=== PATIENT | male | born 1950 | race Caucasian/White ===

== ENCOUNTER → 2017-09-17 07:27 | Outpatient (CLI) | payer MEDICARE, OTHER, SELFPAY ==
[2017-09-17 08:48] LABS: Alanine Aminotransferase 41 IU/L (21-72); Albumin 4.3 g/dL (3.5-5.0); Albumin Globulin Ratio 1.8 (1.0-2.8); Alkaline Phosphatase 69 U/L (38-126); Aspartate Aminotransferase 35 IU/L (17-59); Bilirubin Total 0.5 mg/dL (0.2-1.3); Bilirubin Unconjugated 0.2 mg/dL (0.0-1.1); Cholesterol 146 mg/dL (140-199); Globulin 2.4 g/dL (1.7-4.1); HDL Cholesterol 62 mg/dL (40-60); HEMOLYSIS < 15 (0-50); LDL Cholesterol Calculated 69 mg/dL (<100); Total Protein 6.7 g/dL (6.3-8.2); Triglycerides 77 mg/dL (35-150)
== END ==
PROVIDERS: PCP Internal Medicine; Visit Provider Internal Medicine Cardiovascular Disease
DX: I10 Essential (primary) hypertension (principal); I70.90 Unspecified atherosclerosis
CPT/HCPCS: 36415; 80061; 80076

== ENCOUNTER → 2018-02-08 09:40 | Outpatient (CLI) | payer MEDICARE, OTHER, SELFPAY ==
--- NOTE | 2018-02-08 | DI.MRI.S_ITS ---
PROCEDURE: MR LUMBAR SPINE WO CON INDICATIONS: LUMBAR RADICULOPATHY AND RIGHT FOOT PAIN TECHNIQUE: Noncontrast sagittal T1 spin echo and T2 fast echo, sagittal STIR, axial T1 and T2 fast spin echo through the lumbar spine. In cases with scoliosis, additional coronal T2 fast spin echo may be performed. COMPARISON: None. FINDINGS: Image quality: Excellent. Alignment and Curvature: There is trace L2-L3, L3-L4 and L4-L5 retrolisthesis. Bone Marrow: Benign, intraosseous hemangiomas noted in the L2 and L3 vertebral bodies. Mild reactive endplate changes noted adjacent to the L5-S1 disc. No acute vertebral body compression fractures. Spinal Cord: Conus medullaris terminates at the L1 level. Visualized cord demonstrates normal signal and size. Paraspinous Soft Tissues: No paravertebral masses. L1-L2: Loss of disc signal and height. Moderate, diffuse disc bulge. No central stenosis. No neural foraminal narrowing. No neural impingement. L2-L3: Loss of disc signal and height. Mild, diffuse disc bulge. Mild narrowing of the central canal. No neural foraminal narrowing. No neural impingement. L3-L4: Loss of disc signal and height. Mild, diffuse disc bulge. Mild narrowing of the central canal. No neural foraminal narrowing. No neural impingement. L4-L5: Loss of disc signal and height. Mild, diffuse disc bulge. Mild bilateral facet hypertrophy. Mild narrowing of the central canal. Mild bilateral neural foraminal narrowing. No neural impingement. L5-S1: Loss of disc signal and height. Mild, diffuse disc bulge. Mild bilateral facet hypertrophy. No central stenosis. Mild bilateral neural foraminal narrowing. No neural impingement. Focal high intensity zone noted in the posterior annulus compatible with a fissure. IMPRESSION: 1. Multilevel degenerative disc disease. 2. Multilevel facet arthropathy. 3. Mild L2-L3 and L3-L4 central canal narrowing. 4. Mild bilateral L4-L5 and L5-S1 neural foraminal narrowing. 5. No neural impingement. 6. L5-S1 disc annulus fissure. Dictated by: Mary Burgos MD, PhD on 02/08/2018 at 21:59 Approved by: Mary Burgos MD, PhD on 02/08/2018 at 22:03
== END ==
PROVIDERS: Family Provider Family Medicine; PCP Family Medicine; Visit Provider Orthopaedic Surgery Foot and Ankle Surgery
DX: M51.16 Intervertebral disc disorders with radiculopathy, lumbar region (principal); M51.17 Intervertebral disc disorders with radiculopathy, lumbosacral region; M47.26 Other spondylosis with radiculopathy, lumbar region; M47.27 Other spondylosis with radiculopathy, lumbosacral region; M48.061 Spinal stenosis, lumbar region without neurogenic claudication; M48.07 Spinal stenosis, lumbosacral region; M79.671 Pain in right foot
CPT/HCPCS: 72148

== ENCOUNTER → 2019-01-06 15:02 | Outpatient (CLI) | payer MEDICARE, OTHER, SELFPAY ==
[2019-01-06 15:59] LABS: BUN Creatinine Ratio 18.5 (6-22); Blood Urea Nitrogen 24 mg/dL (9-20); Carbon Dioxide 27 mmol/L (22-32); Chloride 107 mmol/L (98-107); Estimated Glomerular Filt Rate 54.7 mL/min (>60); Glucose 91 mg/dL (80-110); HEMOLYSIS < 15 (0-50); Potassium 4.2 mmol/L (3.4-5.1); Sodium 142 mmol/L (137-145)
[2019-01-06 16:16] LABS: Vitamin D 25 Hydroxy (D3) 27.8 ng/mL (30.0-100.0)
[2019-01-06 16:30] LABS: Prostate Specific Antigen Scrn 4.43 ng/mL (0.1-4.0)
== END ==
PROVIDERS: PCP Student in an Organized Health Care Education/Training Program; Visit Provider Student in an Organized Health Care Education/Training Program
DX: Z12.5 Encounter for screening for malignant neoplasm of prostate (principal); I10 Essential (primary) hypertension; E55.9 Vitamin D deficiency, unspecified
CPT/HCPCS: 36415; 80048; 82306; G0103

== ENCOUNTER → 2019-02-10 10:06 | Outpatient (CLI) | payer MEDICARE, OTHER, SELFPAY ==
--- NOTE | 2019-02-10 10:07 | DI.RAD.S_ITS ---
PROCEDURE: FL BARIUM SWALLOW W SPEECH INDICATIONS: Dysphagia TECHNIQUE: Examination was conducted in conjunction with speech pathology per standard protocol. In the lateral projection, filming was performed of the patient swallowing. AP projection filming may also be performed with patient swallowing. COMPARISON: None. FINDINGS: Function: The oral preparatory phase appears normal, with proper containment. The subsequent oral propulsive phase, pharyngeal phase, and esophageal phase of swallowing also appear normal with all proffered substances. There is a single episode of mild laryngotracheal penetration without aspiration. No pathologic vallecular pooling. Morphology: No cricopharyngeal bar is identified. No cervical esophageal webs. No Zenker's diverticulum. No strictures. IMPRESSION: Single episode of mild laryngotracheal penetration without aspiration. Otherwise, unremarkable modified barium swallow examination. Please see separate report by speech pathology for further details. Dictated by: John Tovar M.D. on 02/10/2019 at 17:55 Approved by: John Tovar M.D. on 02/10/2019 at 17:56
--- NOTE | 2019-02-10 14:41 | ST.SWALLOW ---
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 Ramirez Setting Setting Outpatient Care Patient Information Identification Type Name,ID Wristband Patient History Scottie May was seen for a Modified Barium Swallow Study secondary to concerns of frequent throat clearing. He reported that currently he does not cough or choke whille eating. He denies a medical history of injury or surgery in the neck area, denies CVA/ TIA. He did report that about 2 years ago he had trouble swallowing in that it felt as though food was getting stuck an needed fluids in order to pass to the stomach. He stated he had not seen a doctor for this problem. There was no video available for further slow speed assessment due to a technical difficulty with video uploading. Subjective Observations Pt was seated in the fluoroscopy chair.Directions and instructions for the procedure were explained to the pt. He indicated he understood and was agreeable to proceed. Patient Positioning Position View Lateral Imaging Lateral View Textures Administered Trials Presented Thin Liquid via Spoon,Thin Liquid via Cup,[place] Liquid via Spoon,[place] Liquid via Cup,Regular Textures Oral Phase Source: MBSIMP (TM) (C) Bolus Specific Scoring Grid Lip Closure WFL Tongue Control During Bolus Hold WFL Bolus Prep/Mastication WFL Bolus Transport/Lingual Motion WFL A/P Lingual Propulsion Delay No Nasal Regurgitation No Additional Oral Phase Observations OM examination indicated structures and function to be WFL. Adequate mastication observed with rotary chew. No oral residue observed. Pharyngeal Phase Source: MBSIMP (TM) (C) Bolus Specific Scoring Grid Delayed Initiation of Pharyngeal Swallow No Soft Palate Elevation WFL Tongue Base Strength/Range of Motion Mild Impairment Residue Along the Tongue Base Yes Clearance of Residue Along Tongue Base WFL Laryngeal Elevation Minimal Impairment Anterior Hyoid Movement Mild Impairment Epiglottic Range of Motion Mild Impairment Vallecular Residue Yes Clearance of Vallecular Residue Mild Impairment Laryngeal Vestibular Closure Mild Impairment Upper Esophageal Sphincter Opening WFL Residue in the Pyriform Sinuses Yes Clearance of Residue in the Pyriform Minimal Impairment Sinuses Esophageal Clearance Upright Position WFL Pharyngoesophageal Backflow Observed No A/P View Clinical Impressions Dysphagia Type Mild pharyngeal phase dysphagia Findings No premature spillage of the bolus was observed. The swallow response appeared to be WFL. Tongue base was observed to be weak with reduced forward excursion of the hyoid bone. Hyolaryngeal elevation appeared to be WFL. Reduced movement of the hyoid bone negatively effects epiglottic movement, reduces the closure of the laryngeal vestibule and results in pooled residue in the valeculla. This pooling was observed across all trials within the valeculla. Flash penetration into the airway was observed several times with thin liquids, indicating incomplete epiglottic seal/ airway protection. There was no aspiration observed. The pt did not cough in response to the penetration. Cuing to clear his throat and swallow was effective in clearing pharyngeal residue except that in the valeculla. Rehabilitation Potential Good Patient Appropriate for Therapy Yes Recommendations Treatment Plan Therapy Recommendations Outpatient Speech Therapy,Base of Tongue Exercises, Compensatory Strategy Education Recommended Referrals Primary Care Physician
== END ==
PROVIDERS: PCP Student in an Organized Health Care Education/Training Program; Visit Provider Student in an Organized Health Care Education/Training Program
DX: R13.10 Dysphagia, unspecified (principal)
CPT/HCPCS: 74230; 92611

== ENCOUNTER 2019-02-11 11:00 | Day surgery (SDC) | payer MEDICARE, OTHER, SELFPAY ==
[2019-02-10 10:53] VITALS: BMI 26.4
[2019-02-11] VITALS (7 sets, daily range): BP systolic 109–148; BP diastolic 58–82; PULSE 64–76; RESP 13–16; TEMP 36.3–36.8; O2SAT 95–99; BMI 25.8
[2019-02-11] MEDS: LACTATED RINGERS 1,000 ML 100 ML IV (11:41)
--- NOTE | 2019-02-11 11:54 | SUR.PREOP ---
Questions surgeon (Spenser) the 3 gram Ancef IV with pt's current weight @ 84 kg. Surgeon gave verbal order for 2 gram Ancef IV weight based.
[2019-02-11 12:02] LABS: BUN Creatinine Ratio 14.2 (6-22); Blood Urea Nitrogen 17 mg/dL (9-20); Carbon Dioxide 25 mmol/L (22-32); Chloride 108 mmol/L (98-107); Estimated Glomerular Filt Rate > 60.0 mL/min (>60); Glucose 98 mg/dL (80-110); HEMOLYSIS < 15 (0-50); Sodium 142 mmol/L (137-145)
--- NOTE | 2019-02-11 12:23 | PM.PREOP ---
Pre-operative Note Interval Note History & Physical reviewed/Exam performed by Physician: Yes Changes to H&P: No
[2019-02-11] MEDS: CEFAZOLIN 2 GM/100 ML FROZ.PIGGY IV (12:35)
--- NOTE | 2019-02-11 12:51 | SUR.OPER ---
Supine on padded OR bed, head on pillow, arms secured on padded arm boards at <90 degrees abduction, legs uncrossed, safety belt at thigh, tape over blanket over lower legs.
[2019-02-11] MEDS: BUPIVACAINE 0.25% W/ EPI (PF) 10 ML VIAL 20 ML INJ (12:58)
[2019-02-11] MEDS: BUPIVACAINE LIPOSOME 266 MG/20 ML VIAL INJ (13:14)
--- NOTE | 2019-02-11 13:34 | PM.OP.1 ---
Operative Date/Time/Diagnoses Date of procedure: 02/11/19 Time of procedure: 13:35 Pre-op diagnosis: umbilical hernia Post-op diagnosis: same Procedure & Clinicians Procedure: Umbilical hernia repair with mesh Same procedure as scheduled: Yes Indications: This is a 68-year-old man with a history of an umbilical hernia which causes him pain and discomfort. Surgeon: Milly Dueñas Click Yes if Unassisted: Yes Anesthesia Type: General (Tyrell a) Operative Notes Findings: 1.5cm umbilical hernia defect with hernia sac scarred into the posterior umbilical skin Specimen(s): none sent Prosthetic devices, grafts, tissues, transplants, or devices: 4 cm x 4 cm Macro porous mesh Estimated Blood Loss (mL): 0 Blood products transfused: none Procedure in detail: The patient was brought into the operating room and placed supine on the OR table. Sequential compression devices were placed on both legs and turned on. Appropriate perioperative antibiotics were given prior to the start of surgery. General anesthesia was induced and an LMA was placed by the anesthesiologist. The abdomen was prepped and draped in sterile fashion. Surgical time-out was conducted. Local anesthetic was injected under the skin just superior to the umbilicus and a fold of the umbilical skin. A 3 cm transverse curvilinear incision was made at this location. Dissection was carried down to the fascia of the abdominal wall using sharp and blunt dissection. The umbilical hernia sac was identified was found to be scarred into the dermis of the umbilical skin. The hernia sac was dissected free and the skin was spared. The sac was then dissected free from the surrounding fascia and reduced into the abdomen. The hernia defect was found to be about 1.5 cm, not large enough to fit a preperitoneal mesh without enlarging the umbilical ring. The decision was then made to close the hernia defect primarily with 0 Prolene suture. This was done with 2 0 Prolene [id number] sutures. I then elected to reinforce anteriorly with macro porous mesh. 20 cc of Exparel was injected into the abdominal wall circumferentially covering all regions affected by our dissection to provide prolonged nonnarcotic analgesia. A 4 cm x 4 cm piece of mesh was brought into the field and shaped to fit over the hernia defect anteriorly with good overlap. The mesh was sutured down with 2 0 PDS suture. The umbilical skin was then tacked down into its normal anatomical position using 3 0 Vicryl suture. The subcutaneous tissue was closed with 3 0 Vicryl. The skin was then closed with a subcuticular running 4 Monocryl, and Dermabond in the skin. This concluded the procedure. At this point the needle sponge and instrument counts were correct. Patient was awakened from anesthesia and extubated. He was transferred to the postanesthesia care unit in stable condition. Complications: none Post-operative Condition: stable Disposition: PACU
== END 2019-02-11 14:23 | disposition home or self-care (01) ==
PROVIDERS: PCP Student in an Organized Health Care Education/Training Program; Visit Provider Surgery
PROC: (CPT 49585; principal; 2019-02-11 12:15)
DX: K42.9 Umbilical hernia without obstruction or gangrene (principal); I10 Essential (primary) hypertension; N18.9 Chronic kidney disease, unspecified; I48.91 Unspecified atrial fibrillation
CPT/HCPCS: 49585; 80048; 93005; C1781; C9290; J0690; J2405; J2704; J3010

== ENCOUNTER → 2019-02-24 13:12 | Outpatient (CLI) | payer MEDICARE, OTHER, SELFPAY ==
[2019-02-24 15:26] LABS: Prostate Specific Antigen 4.54 ng/mL (0.10-4.00)
== END ==
PROVIDERS: PCP Student in an Organized Health Care Education/Training Program; Visit Provider Student in an Organized Health Care Education/Training Program
DX: R97.20 Elevated prostate specific antigen [PSA] (principal)
CPT/HCPCS: 36415; 84153

== ENCOUNTER 2019-03-20 12:05 | Outpatient (RCR) | payer MEDICARE, OTHER, SELFPAY ==
--- NOTE | 2019-03-20 15:34 | ST.OPIE ---
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 Mccoy Reason for Referral dyspahagia Setting Assessment Location Outpatient Care Visit Type Note Type Initial Evaluation Next Note Type Next Note Type Treatment Note Patient Information Identification Type Name History Scottie May was seen for for follow up following his Modified Barium Swallow Study on 02/10/19secondary to concerns of frequent throat clearing. He reported that currently he does not cough or choke while eating. He denies a medical history of injury or surgery in the neck area, denies CVA/TIA. Evaluation Oral Phase Comments The MBSS assessment noted OM examination indicated structures and function to be WFL. Adequate mastication observed with rotary chew. No oral residue observed. Pt reports no change today. Pharyngeal Impairment Mildly Impaired Pharyngeal Phase Comments Based on the MBS, the pt's swallow response appeared to be WFL. Tongue base was observed to be weak with reduced forward excursion of the hyoid bone mildly reduces the closure of the laryngeal vestibule and results in pooled residue in the valeculla. This pooling was observed across all trials within the valeculla. Flash penetration into the airway was observed several times with thin liquids, possible related to the frequent throat clearing. Findings Dysphagia Type mild pharyngeal phase dysphagia Rehabilitation Potential Excellent Diet Recommendations Liquids Order Thin Diet Order Regular Medication Recommendations As Tolerated Aspiration Precautions Recommended Precautions Supersupraglottic Swallow Treatment Plan Appropriate for Therapy Yes Dysphagia Goals Pt will perform lingual strengthening exercises: Shaker and Tongue base exercises Pt will perform cough suppression strategies when he feels the urge to clear throat. 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
--- NOTE | 2019-03-20 15:35 | ST.OPPOC ---
Physical, Occupational & Speech Therapy At [facility] Visit Care Team Role Provider Type Piotr Mccoy MD Attending Provider Physician Primary Care Provider Address: [address] [place] [address], [place] [address], [place], [address] Speech Pathology Plan of Care Plan of Care Dates 03/20/19-06/19/19 Rehabilitation Potential Excellent Electronically Signed by: JAZIEL Choe 03/20/19 3697 Please Sign and Return: I have reviewed this Plan of Care and certify that the skilled therapy services above are required to meet the patient?s needs. Physician Signature Date Printed Name and Credentials Clinical Instructor Signature Printed Name and Credentials
--- NOTE | 2019-03-20 15:37 | ST.OPIE ---
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 Mccoy Reason for Referral dyspahagia Setting Assessment Location Outpatient Care Visit Type Note Type Initial Evaluation Next Note Type Next Note Type Treatment Note Patient Information Identification Type Name History Scottie May was seen for for fullow up following his Modified Barium Swallow Study on 02/10/19secondary to concerns of frequent throat clearing. He reported that currently he does not cough or choke whille eating. He denies a medical history of injury or surgery in the neck area, denies CVA/TIA. Evaluation Oral Phase Comments The MBSS assessment noted OM examination indicated structures and function to be WFL. Adequate mastication observed with rotary chew. No oral residue observed. Pt reports no change today. Pharyngeal Impairment Mildly Impaired Pharyngeal Phase Comments Based on the MBS, the pt's swallow response appeared to be WFL. Tongue base was observed to be weak with reduced forward excursion of the hyoid bone mildly reduces the closure of the laryngeal vestibule and results in pooled residue in the valeculla. This pooling was observed across all trials within the valeculla. Flash penetration into the airway was observed several times with thin liquids, possible related to the frequent throat clearing. Findings Dysphagia Type mild pharyngeal phase dysphagia Rehabilitation Potential Excellent Diet Recommendations Liquids Order Thin Diet Order Regular Medication Recommendations As Tolerated Aspiration Precautions Recommended Precautions Supersupraglottic Swallow Treatment Plan Appropriate for Therapy Yes Dysphagia Goals Pt will perform lingual strengthening exercises: Shaker and Tongue base exercises Pt will perform cough suppression strategies when he feels the urge to clear throat. 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
--- NOTE | 2019-05-12 11:23 | ST.OPDS ---
Visit Care Team Role Provider Type Piotr Mccoy MD Attending Provider Physician Primary Care Provider Address: [address] [place] [address], [address], [place], [address] TECHNICAL SUPPORT REPRESENTATIVE Treatment Note TECHNICAL SUPPORT REPRESENTATIVE Treatment Note Start: 03/20/19 15:11 Freq: Status: Active Protocol: Document 05/12/19 11:20 LNK (Rec: 05/12/19 11:23 LNK [email or web address]) Speech Pathology Treatment Note Visit Type Note Type Discharge Summary General Information General Information Scottie May was seen for for follow up following his Modified Barium Swallow Study on 02/10/19secondary to concerns of frequent throat clearing. He reported that currently he does not cough or choke whille eating. Based on the MBS, the pt's swallow response appeared to be WFL. Tongue base was observed to be weak with reduced forward excursion of the hyoid bone mildly reduces the closure of the laryngeal vestibule and results in pooled residue in the valeculla. This pooling was observed across all trials within the valeculla. Flash penetration into the airway was observed several times with thin liquids, possible related to the frequent throat clearing. [ End ] Subjective Chief Complaint(s) Swallowing Objective Short Term Goals Pt will perform lingual strengthening exercises: Shaker and Tongue base exercises Pt will perform cough suppression strategies when he feels the urge to clear throat. Treatment Activities Scottie May has not been seen for ST since initial evaluation Assessment Progress Towards Goals Appropriate for Discharge Plan Amount of Therapy Recommended No Further Therapy Frequency of Treatment No Further Therapy Therapy Recommendations Discharge from Speech Therapy
== END 2019-05-12 13:09 ==
LOC: SP 12:05
PROVIDERS: PCP Student in an Organized Health Care Education/Training Program; Visit Provider Student in an Organized Health Care Education/Training Program
DX: R13.10 Dysphagia, unspecified (principal)
CPT/HCPCS: 92610

== ENCOUNTER → 2019-05-18 11:51 | Outpatient (CLI) | payer MEDICARE, OTHER, SELFPAY ==
[2019-05-18 13:27] LABS: Prostate Specific Antigen 3.23 ng/mL (0.10-4.00)
== END ==
PROVIDERS: PCP Student in an Organized Health Care Education/Training Program; Referring Provider Specialist; Visit Provider Specialist
DX: N40.1 Benign prostatic hyperplasia with lower urinary tract symptoms (principal)
CPT/HCPCS: 36415; 84153

== ENCOUNTER → 2019-10-16 08:19 | Outpatient (CLI) | payer MEDICARE, OTHER, SELFPAY ==
[2019-10-16 09:43] LABS: Alanine Aminotransferase 21 IU/L (<50); Albumin 4.2 g/dL (3.5-5.0); Albumin Globulin Ratio 1.9 (1.0-2.8); Alkaline Phosphatase 70 U/L (38-126); Aspartate Aminotransferase 25 IU/L (17-59); BUN Creatinine Ratio 14.2 (6-22); Bilirubin Total 0.8 mg/dL (0.2-1.3); Blood Urea Nitrogen 17 mg/dL (9-20); Calcium 9.5 mg/dL (8.4-10.2); Carbon Dioxide 27 mmol/L (22-32); Chloride 106 mmol/L (98-107); Cholesterol 152 mg/dL (140-199); Estimated Glomerular Filt Rate 59.9 mL/min (>60); Globulin 2.2 g/dL (1.7-4.1); Glucose 98 mg/dL (80-110); HDL Cholesterol 57 mg/dL (40-60); HEMOLYSIS < 15 (0-50); LDL Cholesterol Calculated 73 mg/dL (<100); Potassium 4.8 mmol/L (3.4-5.1); Sodium 138 mmol/L (137-145); Total Protein 6.4 g/dL (6.3-8.2); Triglycerides 109 mg/dL (35-150)
== END ==
PROVIDERS: PCP Student in an Organized Health Care Education/Training Program; Referring Provider Internal Medicine Cardiovascular Disease; Visit Provider Internal Medicine Cardiovascular Disease
DX: I10 Essential (primary) hypertension (principal)
CPT/HCPCS: 36415; 80053; 80061

== ENCOUNTER → 2019-12-24 10:27 | Outpatient (CLI) | payer MEDICARE, OTHER, SELFPAY ==
[2019-12-24 13:35] LABS: Prostate Specific Antigen 3.61 ng/mL (0.10-4.00)
== END ==
PROVIDERS: PCP Student in an Organized Health Care Education/Training Program; Referring Provider Specialist; Visit Provider Specialist
DX: M47.816 Spondylosis without myelopathy or radiculopathy, lumbar region (principal); R97.20 Elevated prostate specific antigen [PSA]
CPT/HCPCS: 36415; 84153

== ENCOUNTER 2020-03-08 11:37 | Emergency (ER) | payer MEDICARE, OTHER, SELFPAY ==
[2020-03-08 11:50] VITALS: BP 145/67; PULSE 86; RESP 14; TEMP 36.7; O2SAT 98; BMI 25.7
--- NOTE | 2020-03-08 11:57 | DI.RAD.S_ITS ---
PROCEDURE: XR FOOT LT MIN 3V INDICATIONS: left foot pain TECHNIQUE: 3 views of the foot were acquired. COMPARISON: None. FINDINGS: Bones: No fractures or dislocations. No suspicious bony lesions. Soft tissues: No tibiotalar joint effusion. Achilles tendon appears normal. IMPRESSION: Normal for age, source of current left foot pain symptoms is not seen. Dictated by: Flex Rand M.D. on 03/08/2020 at 12:43 Approved by: Flex Rand M.D. on 03/08/2020 at 12:43
[2020-03-08 13:34] LABS: Add Manual Diff / Slide Review NO; Basophils Absolute Auto 0 /uL (0-100); Basophils Percent Auto 0.8 % (0-2); Eosinophils Absolute Auto 100 /uL (0-450); Eosinophils Percent Auto 2.2 % (2-4); Hematocrit 41.8 % (41-53); Hemoglobin 13.7 g/dL (13.5-17.5); Lymphocytes Absolute Auto 1500 /uL (1100-4500); Lymphocytes Percent Auto 23.9 % (25-40); Mean Corpuscular HGB Conc 32.8 % (30-36); Mean Corpuscular Hemoglobin 30.7 PG (26-34); Mean Corpuscular Volume 93.6 fL (80-100); Monocytes Absolute Auto 800 /uL (0-900); Neutrophils Absolute Auto 3700 /uL (1500-7000); Neutrophils Percent Auto 60.1 % (50-75); Platelet Count 215 X10^3/uL (150-400); Red Blood Cell Count 4.47 X10^6/uL (4.5-5.9); Red Cell Distribution Width 13.3 % (11.6-14.8); White Blood Cell Count 6.2 X10^3/uL (4.5-11.0)
--- NOTE | 2020-03-08 14:54 | ED.EXTPRO ---
HPI - Extremity Problem <MANOJ Shaffer - Last Filed: 03/08/20 17:15> General Chief complaint: Extremity Problem,Nontraumatic Stated complaint: Left Foot Pain and Swelling Time Seen by Provider: 03/08/20 12:28 Source: patient Mode of arrival: Ambulatory Limitations: no limitations History of Present Illness HPI Narrative: This is a 69-year-old male, nonsmoker, with past medical history significant for umbilical hernia repair, AFib, hypertension, hyperlipidemia presents to ED with acute left metatarsal joint discomfort in great toe. Patient reports onset of pain started at 8:00 p.m. at night without known trauma or injury. Patient reports pain as aching and rates as 7/10. He had to take old prescription [place] for pain at 0 1 and 0 5 in the morning for pain and since he was not able to sleep. Patient reports warmth, redness, swelling to right medial foot and metatarsal joint in great toe. Patient denies fever, chills, nausea, vomiting, history of gout. Patient denies taking diuretics including HCTZ. Patient has a couple of drinks a day but does not use other drugs. He denies eating organ meets or shellfish recently. Related Data Home Medications Medication Instructions Recorded Confirmed atorvastatin 20 mg tablet 20 mg PO BEDTIME 01/06/19 12/31/19 diltiazem HCl 120 mg 240 mg PO QDAY cap 01/06/19 12/31/19 capsule,extended release 24 hr losartan 50 mg tablet 25 mg PO QDAY tab 01/06/19 12/31/19 flecainide 100 mg PO BID PRN 02/11/19 12/31/19 alfuzosin 10 mg tablet,extended 10 mg PO DAILY 12/25/19 12/31/19 release 24 hr Previous Rx's Medication Instructions Recorded docusate sodium 100 mg PO BID #20 cap 02/11/19 hydrocodone-acetaminophen 1 tab PO Q4-6H PRN #30 tab MDD 8 02/11/19 tabs prednisone 20 mg PO BID 7 Days #14 tab 03/08/20 Allergies Allergy/AdvReac Type Severity Reaction Status Date / Time No Known Drug Allergies Allergy Verified 03/08/20 11:56 Review of Systems <MANOJ Shaffer - Last Filed: 03/08/20 17:15> Review of Systems Narrative: General: Denies fever, chills, fatigue, malaise, sweats. HEENT: Denies sinus pain, ear pain, sore throat, difficulty swallowing, dizziness. Respiratory: Denies dyspnea, cough, wheezing, hemoptysis, sputum. Cardiovascular: Denies chest pain, palpitations, orthopnea, edema. Gastrointestinal: Denies nausea, vomiting, abdominal pain, diarrhea, constipation, melena. : Denies dysuria, frequency, incontinence, hematuria, urinary retention. Musculoskeletal: See HPI Skin: See HPI Neurologic: Denies weakness, headache, numbness, change in speech, confusion, seizures, incoordination. Psychiatric: No concerning psychosocial issues. 12-point review of systems is negative except for those stated above. Patient History <MANOJ Shaffer - Last Filed: 03/08/20 17:15> Medical History Atrial fibrillation BPH w urinary obs/LUTS Chicken pox Chronic back pain Chronic sinusitis CKD (chronic kidney disease) stage 2, GFR 60-89 ml/min Degenerative joint disease (DJD) of lumbar spine Enlarged prostate Hearing loss Hemorrhoid History of elevated PSA History of recurrent ear infection HLD (hyperlipidemia) Hypertension Mumps Recurrent sinusitis Skin cancer Tinnitus Umbilical hernia Vision disorder Surgical History Anesthesia History of inguinal hernia repair (~1970) History of inguinal hernia repair (~2002) History of nasal septoplasty (~2005) Hx of sinus surgery Family History Father History of heart disease Mental health problem Mother Cancer Social History household members: spouse Smoking Status: Never smoker Smoking Status: Never smoker alcohol intake frequency: 3 or more drinks per day Substance Use Type: does not use Exam <MANOJ Shaffer - Last Filed: 03/08/20 17:15> Narrative Exam Narrative: General appearance: well developed, well nourished, in no acute distress. Head: normocephalic, atraumatic, no scalp lesions, non-tender. ENT: Hearing grossly intact. Nose without bleeding, purulent discharge, septal hematoma or deviation. Turbinate without erythema or swelling. Mucous membrane moist, no mucosal lesion. Throat without erythema, tonsillar hypertrophy or exudate. Uvula in midline, airway patent. Neck/Thyroid: neck supple, full range of motion, no visible masses or meningeal signs. No JVD, non-tender without lymphadenopathy. Skin: no suspicious rashes, lesions over visible areas. Warm and dry and appropriate color for ethnicity. See extremity Heart: no clubbing, no cyanosis, no edema. S1 and S2 normal. RRR w/o murmurs, clicks, or bruits. Lungs: Breathing even and unlabored. No stridor. No accessory muscles used. Able to speak in full sentences. Chest: normal shape and expansion. Abdomen: non-obese, non-distended. Neurologic: alert and oriented. 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 Psych: good eye contact, normal affect. Initial Vital Signs Initial Vital Signs: Vital Signs Temperature 98.1 F 03/08/20 11:50 Pulse Rate 86 03/08/20 11:50 Respiratory Rate 14 03/08/20 11:50 Blood Pressure 145/67 H 03/08/20 11:50 Pulse Oximetry 98 03/08/20 11:50 Extrem Left lower extremity: knee Details: normal to inspection; no tenderness and no swelling, ankle Details: normal to inspection; no tenderness and no swelling and foot Details: normal capillary refill, abnormal to inspection, tenderness Location: of the medial foot (most in 1st metatarsal in great toe) Location: distally, toes with normal ROM, warmth Location: of the dorsal foot, of the medial foot and diffusely, edema Location: of the dorsal foot, of the plantar foot, of the medial foot and diffusely Details: non-pitting, vascular exam Details: dorsalis pedis pulse present, normal capillary refill and other (warm) and motor-sensory exam Details: light-touch normal; no lacerations, no ecchymosis, no foreign bodies and no puncture wound <Jennifer Meza, - Last Filed: 03/08/20 19:18> Initial Vital Signs Initial Vital Signs: Vital Signs Temperature 98.1 F 03/08/20 11:50 Pulse Rate 86 03/08/20 11:50 Respiratory Rate 14 03/08/20 11:50 Blood Pressure 145/67 H 03/08/20 11:50 Pulse Oximetry 98 03/08/20 11:50 Scores <Vikas AlfordMANOJ - Last Filed: 03/08/20 17:15> GCS Alex coma scale eye opening: Spontaneous Alex coma scale verbal response: Orientated Alex coma scale motor response: Obey commands [place] coma scale total score: 15 qSOFA Altered Mental Status (GCS <15): No Respiratory rate greater than/equal to 22: No Systolic blood pressure less than or equal to 100: No qSOFA Total: 0 0-1 Not High Risk 1-3 High risk Citation:: Acute gout diagnosis rule score 11% (gout is very likely) Course <Vikas Alford MANOJ - Last Filed: 03/08/20 17:15> Orders Ordered: ED Orders 03/08/20 11:57 XR foot LT min 3V Stat 03/08/20 13:27 Complete Blood Count AUTO DIFF Stat Comprehensive Metabolic Panel Stat Lactate (Lactic Acid) Stat Uric Acid Stat Discontinued Medications Prednisone (Prednisone 20 Mg Tablet) 40 mg PO NOW ONE Stop: 03/08/20 15:52 Last Admin: 03/08/20 15:58 Dose: 40 mg Documented by: BRITTANEY Reevaluation(s) Reevaluation #1: Patient declined any medications for pain at this time. Informed patient that waiting for rest of the lab test results at this time. Time: 15:10 Vital Signs Vital signs: Vital Signs - 8 hr 03/08/20 11:50 03/08/20 16:07 Temperature 98.1 F 98.6 F Pulse Rate 86 79 Respiratory Rate 14 16 Blood Pressure 145/67 H 158/98 H Pulse Oximetry 98 96 <Jennifer Meza DO - Last Filed: 03/08/20 19:18> Orders Ordered: ED Orders 03/08/20 11:57 XR foot LT min 3V Stat 03/08/20 13:27 Complete Blood Count AUTO DIFF Stat Comprehensive Metabolic Panel Stat Lactate (Lactic Acid) Stat Uric Acid Stat Discontinued Medications Prednisone (Prednisone 20 Mg Tablet) 40 mg PO NOW ONE Stop: 03/08/20 15:52 Last Admin: 03/08/20 15:58 Dose: 40 mg Documented by: BRITTANEY Vital Signs Vital signs: Vital Signs - 8 hr 03/08/20 11:50 03/08/20 16:07 Temperature 98.1 F 98.6 F Pulse Rate 86 79 Respiratory Rate 14 16 Blood Pressure 145/67 H 158/98 H Pulse Oximetry 98 96 MDM - Extremity (Nontraumatic) <MADELIN ShafferP - Last Filed: 03/08/20 17:15> Differential Diagnosis Differential diagnosis: Likely gout, cellulitis and other (Fracture, dislocation) Medical Records Attestation: I reviewed the patient's medical records. Lab Data Attestation: I reviewed the patient's lab results. Result diagrams: 03/08/20 13:27 03/08/20 13:27 Labs: Lab Results 03/08/20 03/08/20 03/08/20 Range/Units 13:27 13:27 13:27 WBC 6.2 (4.5-11.0) X10^3/uL RBC 4.47 L (4.5-5.9) X10^6/uL Hgb 13.7 (13.5-17.5) g/dL Hct 41.8 (41-53) % MCV 93.6 (80-100) fL MCH 30.7 (26-34) PG MCHC 32.8 (30-36) % RDW 13.3 (11.6-14.8) % Plt Count 215 (150-400) X10^3/uL Neut % (Auto) 60.1 (50-75) % Lymph % (Auto) 23.9 L (25-40) % Clarke % (Auto) 13.0 (3-14) % Eos % (Auto) 2.2 (2-4) % Baso % (Auto) 0.8 (0-2) % Neut # (Auto) 3700 (4950-9162) /uL Lymph # (Auto) 1500 (4297-3460) /uL Clarke # (Auto) 800 (0-900) /uL Eos # (Auto) 100 (0-450) /uL Baso # (Auto) 0 (0-100) /uL Sodium 135 L (137-145) mmol/L Potassium 4.6 (3.4-5.1) mmol/L Chloride 106 (98-107) mmol/L Carbon Dioxide 29 (22-32) mmol/L BUN 19 (9-20) mg/dL Creatinine 1.07 (0.66-1.25) mg/dL Estimated GFR > 60.0 (>60) mL/min BUN/Creatinine Ratio 17.8 (6-22) Glucose 98 (80-110) mg/dL Lactate 0.9 (0.7-2.1) mmol/L Uric Acid 6.6 (3.5-8.5) mg/dL Calcium 8.7 (8.4-10.2) mg/dL Total Bilirubin 0.5 (0.2-1.3) mg/dL AST 27 (17-59) IU/L ALT 21 (<50) IU/L Alkaline Phosphatase 78 (38-126) U/L Total Protein 6.7 (6.3-8.2) g/dL Albumin 3.9 (3.5-5.0) g/dL Globulin 2.8 (1.7-4.1) g/dL Albumin/Globulin Ratio 1.4 (1.0-2.8) Imaging Data XR-Foot LT: Radiologist's Impression: Scottie May [address] [id number] ReportSigned Patient: Scottie May KMR#: [id number]: 1950Acct:[id number]/Sex: 69 / MDate of Service: 03/08/20Loc: EDAccession Number: [id number] Procedure: XR foot LT min 3V Ordering Provider: Jennifer Meza D.O. PROCEDURE: XR FOOT LT MIN 3V INDICATIONS: left foot pain TECHNIQUE: 3 views of the foot were acquired. COMPARISON: None. FINDINGS: Bones: No fractures or dislocations. No suspicious bony lesions. Soft tissues: No tibiotalar joint effusion. Achilles tendon appears normal. IMPRESSION: Normal for age, source of current left foot pain symptoms is not seen. Dictated by: Flex Rand M.D. on 03/08/2020 at 12:43 Approved by: Flex Rand M.D. on 03/08/2020 at 12:43 [facility] Narrative Medical decision making narrative: This is a 69-year-old male who presents to ED with nontraumatic foot pain, warmth, redness, swelling since last night. No history of known gout. No skin injury to affected foot. Does not show fractures, dislocations, or suspicious bony lesions. Concerns for cellulitis versus gout, lab tests were done. No leukocytosis. Normal lactate of 0.9. Unremarkable chemistry test with normal kidney function and liver function test. Uric acid 6.6, higher in normal range. Acute gout diagnosis rule is 11 points and dindicates gout is very likely. Considered treatment with colchicine but appears he can cause interaction with diltiazem patient's current medications. Patient reports NSAIDS causes bad heartburn. Patient states had used prednisone without difficulty in the past. Patient was medicated with 1st dose prednisone 40 mg in ED and discharged to home with 20 mg b.i.d. ED dose for next 7 days or until the pain improves. Patient advised to monitor for signs and symptoms for infection with strict return precautions and advised to follow up with PCP. Patient reports he has enough [place] at home from previous surgeries that he can use for severe pain. And we reviewed narcotic and prednisone medication precautions. Patient and spouse both verbalized understanding in agreement with the treatment plan. <Jennifer Meza, DO - Last Filed: 03/08/20 19:18> Lab Data Labs: Lab Results 03/08/20 03/08/20 03/08/20 Range/Units 13:27 13:27 13:27 WBC 6.2 (4.5-11.0) X10^3/uL RBC 4.47 L (4.5-5.9) X10^6/uL Hgb 13.7 (13.5-17.5) g/dL Hct 41.8 (41-53) % MCV 93.6 (80-100) fL MCH 30.7 (26-34) PG MCHC 32.8 (30-36) % RDW 13.3 (11.6-14.8) % Plt Count 215 (150-400) X10^3/uL Neut % (Auto) 60.1 (50-75) % Lymph % (Auto) 23.9 L (25-40) % Clarke % (Auto) 13.0 (3-14) % Eos % (Auto) 2.2 (2-4) % Baso % (Auto) 0.8 (0-2) % Neut # (Auto) 3700 (7961-3037) /uL Lymph # (Auto) 1500 (6318-7953) /uL Clarke # (Auto) 800 (0-900) /uL Eos # (Auto) 100 (0-450) /uL Baso # (Auto) 0 (0-100) /uL Sodium 135 L (137-145) mmol/L Potassium 4.6 (3.4-5.1) mmol/L Chloride 106 (98-107) mmol/L Carbon Dioxide 29 (22-32) mmol/L BUN 19 (9-20) mg/dL Creatinine 1.07 (0.66-1.25) mg/dL Estimated GFR > 60.0 (>60) mL/min BUN/Creatinine Ratio 17.8 (6-22) Glucose 98 (80-110) mg/dL Lactate 0.9 (0.7-2.1) mmol/L Uric Acid 6.6 (3.5-8.5) mg/dL Calcium 8.7 (8.4-10.2) mg/dL Total Bilirubin 0.5 (0.2-1.3) mg/dL AST 27 (17-59) IU/L ALT 21 (<50) IU/L Alkaline Phosphatase 78 (38-126) U/L Total Protein 6.7 (6.3-8.2) g/dL Albumin 3.9 (3.5-5.0) g/dL Globulin 2.8 (1.7-4.1) g/dL Albumin/Globulin Ratio 1.4 (1.0-2.8) Discharge Plan Departure Patient Disposition: Home Clinical Impression: Gout Qualifiers: Gout site: foot Gout etiology: unspecified cause Chronicity: acute Laterality: left Qualified Code(s): M10.9 - Gout, unspecified Instructions: DI for Gout Activity Restrictions/Additional Instructions: You have been diagnosed with [left foot pain likely gout. Your given 1st dose of prednisone in ED. can resume next dose tomorrow morning.]. What to do: *Take your medications as directed. Please take prednisone 20 mg twice a day for next 7 days. Please take this medication with food to decrease GI irritation and you can take [id number] omeprazole as needed. *Follow up with your primary care provider in 2-3 days, call for an appointment. Let them know you were seen in the ED and that we asked you to be seen in follow up. *Return to ED if you have any new, worsening, or concerning symptoms, such as [worsening pain, fever, increasing redness/warmth/swelling, chest pain, breathing difficulty, unable to tolerate fluids or any acute concerns]. Prescriptions: New prednisone 20 mg tablet 20 mg PO BID 7 Days Qty: 14 RF: 0 No Action alfuzosin 10 mg tablet extended release 24 hr 10 mg PO DAILY RF: 0 diltiazem HCl [Cartia XT] 120 mg capsule,extended release 24hr 240 mg PO QDAY RF: 0 losartan [Cozaar] 50 mg tablet 25 mg PO QDAY RF: 0 atorvastatin 20 mg tablet 20 mg PO BEDTIME RF: 0 flecainide 100 MG tablet 100 mg PO BID PRN (Reason: Atrial Fibrillation) RF: 0 hydrocodone-acetaminophen 5-325 mg tablet 1 tab PO Q4-6H MDD 8 tabs PRN (Reason: pain) Qty: 30 RF: 0 docusate sodium 100 mg capsule 100 mg PO BID Qty: 20 RF: 0 Referrals: Piotr Mccoy MD [Primary Care Provider] - <Jennifer Mzea DO - Last Filed: 03/08/20 19:18> Cosign ED Attending Cosignature Attestation: I was immediately available in the department for consultation. Documentation has been reviewed. I agree with assessment and plan.
[2020-03-08 15:01] LABS: Alanine Aminotransferase 21 IU/L (<50); Albumin 3.9 g/dL (3.5-5.0); Albumin Globulin Ratio 1.4 (1.0-2.8); Alkaline Phosphatase 78 U/L (38-126); Aspartate Aminotransferase 27 IU/L (17-59); BUN Creatinine Ratio 17.8 (6-22); Bilirubin Total 0.5 mg/dL (0.2-1.3); Blood Urea Nitrogen 19 mg/dL (9-20); Calcium 8.7 mg/dL (8.4-10.2); Carbon Dioxide 29 mmol/L (22-32); Chloride 106 mmol/L (98-107); Estimated Glomerular Filt Rate > 60.0 mL/min (>60); Globulin 2.8 g/dL (1.7-4.1); Glucose 98 mg/dL (80-110); HEMOLYSIS < 15 (0-50); Potassium 4.6 mmol/L (3.4-5.1); Sodium 135 mmol/L (137-145); Total Protein 6.7 g/dL (6.3-8.2); Uric Acid 6.6 mg/dL (3.5-8.5)
[2020-03-08 15:02] LABS: Lactate (Lactic Acid) 0.9 mmol/L (0.7-2.1)
[2020-03-08] MEDS: predniSONE 20 MG TABLET 40 MG PO (15:58)
[2020-03-08 16:07] VITALS: BP 158/98; PULSE 79; RESP 16; TEMP 37; O2SAT 96
== END 2020-03-08 16:08 | disposition home or self-care (01) ==
PROVIDERS: Emergency Provider Nurse Practitioner Family; PCP Student in an Organized Health Care Education/Training Program
DX: M10.9 Gout, unspecified (principal)
CPT/HCPCS: 36415; 73630; 80053; 83605; 84550; 85025; 99283; 99284

== ENCOUNTER → 2020-08-23 10:18 | Outpatient (CLI) | payer MEDICARE, OTHER, SELFPAY ==
[2020-08-23 12:24] LABS: Prostate Specific Antigen 5.43 ng/mL (0.10-4.00)
== END ==
PROVIDERS: PCP Student in an Organized Health Care Education/Training Program; Referring Provider Specialist; Visit Provider Specialist
DX: Z87.898 Personal history of other specified conditions (principal); N40.1 Benign prostatic hyperplasia with lower urinary tract symptoms; R97.20 Elevated prostate specific antigen [PSA]
CPT/HCPCS: 36415; 84153

== ENCOUNTER → 2020-10-12 09:51 | Outpatient (CLI) | payer MEDICARE, OTHER, SELFPAY ==
[2020-10-12 12:18] LABS: Prostate Specific Antigen 4.38 ng/mL (0.10-4.00)
== END ==
PROVIDERS: PCP Student in an Organized Health Care Education/Training Program; Referring Provider Specialist; Visit Provider Specialist
DX: N40.1 Benign prostatic hyperplasia with lower urinary tract symptoms (principal); N13.8 Other obstructive and reflux uropathy; Z87.898 Personal history of other specified conditions
CPT/HCPCS: 36415; 84153

== ENCOUNTER → 2021-04-12 11:00 | Outpatient (CLI) | payer MEDICARE, OTHER, SELFPAY ==
[2021-04-12 13:55] LABS: Prostate Specific Antigen 5.22 ng/mL (0.10-4.00)
== END ==
PROVIDERS: PCP Student in an Organized Health Care Education/Training Program; Referring Provider Specialist; Visit Provider Specialist
DX: R97.20 Elevated prostate specific antigen [PSA] (principal)
CPT/HCPCS: 36415; 84153

== ENCOUNTER → 2021-10-16 09:29 | Outpatient (CLI) | payer MEDICARE, OTHER, SELFPAY ==
[2021-10-16 10:26] LABS: Cholesterol 148 mg/dL (140-199); HDL Cholesterol 45 mg/dL (40-60); LDL Cholesterol Calculated 90 mg/dL (<100); Triglycerides 63 mg/dL (35-150)
== END ==
PROVIDERS: PCP Student in an Organized Health Care Education/Training Program; Referring Provider Internal Medicine Cardiovascular Disease; Visit Provider Internal Medicine Cardiovascular Disease
DX: I10 Essential (primary) hypertension (principal)
CPT/HCPCS: 36415; 80061

== ENCOUNTER → 2022-05-25 09:51 | Outpatient (CLI) | payer MEDICARE, OTHER, SELFPAY ==
[2022-05-25 12:35] LABS: Prostate Specific Antigen 5.41 ng/mL (0.10-4.00)
== END ==
PROVIDERS: PCP Student in an Organized Health Care Education/Training Program; Referring Provider Specialist; Visit Provider Specialist
DX: R97.20 Elevated prostate specific antigen [PSA] (principal)
CPT/HCPCS: 36415; 84153

== ENCOUNTER → 2022-10-25 08:39 | Outpatient (CLI) | payer MEDICARE, OTHER, SELFPAY ==
[2022-10-25 10:48] LABS: Alanine Aminotransferase 22 IU/L (<50); Albumin 4.2 g/dL (3.5-5.0); Albumin Globulin Ratio 1.7 (1.0-2.8); Alkaline Phosphatase 87 U/L (38-126); Aspartate Aminotransferase 32 IU/L (17-59); BUN Creatinine Ratio 13.6 (6-22); Bilirubin Total 0.6 mg/dL (0.2-1.3); Blood Urea Nitrogen 15 mg/dL (9-20); Carbon Dioxide 22 mmol/L (22-32); Chloride 106 mmol/L (98-107); Cholesterol 149 mg/dL (140-199); Estimated Glomerular Filt Rate > 60 mL/min (>60); Globulin 2.5 g/dL (1.7-4.1); Glucose 92 mg/dL (80-110); HDL Cholesterol 58 mg/dL (40-60); HEMOLYSIS 79 (0-50); LDL Cholesterol Calculated 80 mg/dL (<100); Sodium 135 mmol/L (137-145); Total Protein 6.7 g/dL (6.3-8.2); Triglycerides 57 mg/dL (35-150)
== END ==
PROVIDERS: PCP Pediatrics; Referring Provider Nurse Practitioner; Visit Provider Nurse Practitioner
DX: E78.5 Hyperlipidemia, unspecified (principal); I10 Essential (primary) hypertension
CPT/HCPCS: 36415; 80053; 80061

== ENCOUNTER 2023-02-09 11:11 | Emergency (ER) | payer MEDICARE, OTHER, SELFPAY ==
[2023-02-09 11:25] VITALS: BP 131/62; PULSE 80; RESP 13; TEMP 36.7; O2SAT 99; BMI 25.9
[2023-02-09 11:37] VITALS: PULSE 76; RESP 20; O2SAT 95
--- NOTE | 2023-02-09 11:50 | ED.ARRPALP ---
HPI - Arrhythmia/Palpitations General Chief Complaint: Arrhythmia/Palpitations Stated Complaint: AFIB Time Seen by Provider: 02/09/23 11:25 Source: patient and family Mode of arrival: Ambulatory History of Present Illness HPI narrative: 72-year-old male. History of atrial fibrillation. Is on diltiazem daily but has flecainide that he takes as needed. He is not on anticoagulation. Earlier today was at his normal state of health. States he started to feel lightheaded and palpitations. He did get to the floor rather quickly and did fall but did not hit his head. He is no extremity injuries. He did take his flecainide. Approximately 30 minutes later his symptoms have now resolved. He states he feels somewhat fatigued but overall feels well. He is never been cardioverted. Last appointment with Cardiology was couple months ago. No current scheduled follow-up. Related Data Home Medications Medication Instructions Recorded Confirmed atorvastatin 20 mg tablet 20 mg PO BEDTIME 01/06/19 05/31/22 diltiazem HCl 120 mg 240 mg PO QDAY 01/06/19 05/31/22 capsule,extended release 24 hr (Cartia XT) losartan 50 mg tablet (Cozaar) 25 mg PO QDAY 01/06/19 05/31/22 flecainide 100 mg tablet 100 mg PO BID PRN Atrial 02/11/19 05/31/22 Fibrillation Previous Rx's Medication Instructions Recorded alfuzosin 10 mg tablet,extended See Rx Instructions .Route 04/19/22 release 24 hr .COMPLEX #90 tabs Allergies Allergy/AdvReac Type Severity Reaction Status Date / Time No Known Drug Allergies Allergy Verified 05/31/22 12:53 Review of Systems Constitutional Constitutional: Reports system reviewed and no additional complaints, except as documented Cardiovascular Cardiovascular: Reports system reviewed and no additional complaints, except as documented Respiratory Respiratory: Reports system reviewed and no additional complaints, except as documented Gastrointestinal Gastrointestinal: Reports system reviewed and no additional complaints, except as documented Integumentary/Breasts Skin/Breast: Reports system reviewed and no additional complaints, except as documented Neurologic Neurologic: Reports system reviewed and no additional complaints, except as documented Patient History Medical History History of elevated PSA BPH w urinary obs/LUTS Enlarged prostate HLD (hyperlipidemia) Chronic sinusitis CKD (chronic kidney disease) stage 2, GFR 60-89 ml/min Umbilical hernia Vision disorder Degenerative joint disease (DJD) of lumbar spine Chronic back pain Mumps Chicken pox Tinnitus Recurrent sinusitis History of recurrent ear infection Hearing loss Hemorrhoid Hypertension Atrial fibrillation Skin cancer Surgical History Anesthesia History of inguinal hernia repair (~1970) History of inguinal hernia repair (~2002) History of nasal septoplasty (~2005) Hx of sinus surgery Family History Father History of heart disease Mental health problem Mother Cancer Social History household members: spouse Smoking Status: Never smoker Smoking Status: Never smoker alcohol intake frequency: 0-2 drinks per day Alcohol type: hard liquor Substance Use Type: does not use Exam Initial Vital Signs Initial Vital Signs: Vital Signs Temperature 98.1 F 02/09/23 11:25 Pulse Rate 80 02/09/23 11:25 Respiratory Rate 13 02/09/23 11:25 Blood Pressure 131/62 02/09/23 11:25 Pulse Oximetry 99 02/09/23 11:25 Oxygen Delivery Method Room Air 02/09/23 11:25 HENMT Head: normal to inspection and normocephalic Resp Effort & Inspection: normal respiratory effort Auscultation: clear to auscultation bilaterally Cardio Rate: regular rate Rhythm: regular rhythm GI Inspection: normal to inspection Palpation: soft Skin General: no rashes or lesions noted Neuro General: patient alert, patient awake and moves all extremities Extrem General: normal to inspection and capillary refill normal Course Orders Ordered: ED Orders 02/09/23 11:37 EKG-12 Lead Stat 02/09/23 11:40 Complete Blood Count AUTO DIFF Stat 02/09/23 12:05 Basic Metabolic Panel Stat Vital Signs Vital signs: Vital Signs - 8 hr 02/09/23 11:25 02/09/23 11:37 02/09/23 12:00 Temperature 98.1 F Pulse Rate 80 76 68 Respiratory Rate 13 20 20 Blood Pressure 131/62 Pulse Oximetry 99 95 96 Oxygen Delivery Method Room Air Room Air Room Air MDM - Arrhythmia/Palpitations Lab Data Attestation: I reviewed the patient's lab results. 02/09/23 11:40 02/09/23 12:05 Labs: Lab Results 02/09/23 02/09/23 Range/Units 11:40 12:05 WBC 7.0 (4.5-11.0) X10^3/uL RBC 4.62 (4.5-5.9) X10^6/uL Hgb 14.2 (13.5-17.5) g/dL Hct 42.6 (41-53) % MCV 92.1 (80-100) fL MCH 30.7 (26-34) PG MCHC 33.3 (30-36) % RDW 13.8 (11.6-14.8) % Plt Count 240 (150-400) X10^3/uL Neut % (Auto) 71.4 (50-75) % Lymph % (Auto) 18.0 L (25-40) % [place] % (Auto) 8.8 (3-14) % Eos % (Auto) 1.3 L (2-4) % Baso % (Auto) 0.5 (0-2) % Neut # (Auto) 5000 (6643-5075) /uL Lymph # (Auto) 1300 (2192-4388) /uL [place] # (Auto) 600 (0-900) /uL Eos # (Auto) 100 (0-450) /uL Baso # (Auto) 0 (0-100) /uL Sodium 136 L (137-145) mmol/L Potassium 4.8 (3.4-5.1) mmol/L Chloride 107 (98-107) mmol/L Carbon Dioxide 25 (22-32) mmol/L BUN 21 H (9-20) mg/dL Creatinine 1.24 (0.66-1.25) mg/dL Estimated GFR > 60 (>60) mL/min BUN/Creatinine Ratio 16.9 (6-22) Glucose 86 (80-110) mg/dL Calcium 9.0 (8.4-10.2) mg/dL ECG Data Attestation: I personally reviewed and interpreted this ECG as follows: Interpretation: Sinus rhythm Ventricular rate is 78 Normal QRS Normal QTC No ST T wave changes MDM Narrative Medical decision making narrative: Patient is currently in sinus rhythm. Has not had any ectopy since being here in the ER. His labs are unremarkable. It seems that flecainide does seem to be working for him. No indication to change any of his medications. Advised that he contact his attendant [employer] on Saturday for a follow-up. He was given return precautions. He expressed understanding and agreement. Discharge Plan Departure Patient Disposition: Home Clinical Impression: Palpitations Instructions: DI for Arrhythmias Activity Restrictions/Additional Instructions: Recommend that you continue to take all of your medications as directed. Contact your attendant [employer] on Saturday for a follow-up. Return in the emergency department for new or worsening symptoms. Prescriptions: No Action alfuzosin 10 mg tablet extended release 24 hr See Rx Instructions .ROUTE .COMPLEX Qty: 90 3RF Dose Instruction: TAKE ONE TABLET BY MOUTH ONE TIME DAILY AFTER THE SAME MEAL Rx Instructions: TAKE ONE TABLET BY MOUTH ONE TIME DAILY AFTER THE SAME MEAL diltiazem HCl [Cartia XT] 120 mg capsule,extended release 24hr 240 mg PO QDAY losartan [Cozaar] 50 mg tablet 25 mg PO QDAY atorvastatin 20 mg tablet 20 mg PO BEDTIME flecainide 100 MG tablet 100 mg PO BID PRN (Reason: Atrial Fibrillation) Rx Instructions: over a year Referrals: Cabrera Haney MD [Primary Care Provider] - Stand Alone Forms: Patient Portal/API
[2023-02-09 11:55] LABS: Add Manual Diff / Slide Review NO; Basophils Absolute Auto 0 /uL (0-100); Basophils Percent Auto 0.5 % (0-2); Eosinophils Absolute Auto 100 /uL (0-450); Eosinophils Percent Auto 1.3 % (2-4); Hematocrit 42.6 % (41-53); Hemoglobin 14.2 g/dL (13.5-17.5); Lymphocytes Absolute Auto 1300 /uL (1100-4500); Mean Corpuscular HGB Conc 33.3 % (30-36); Mean Corpuscular Hemoglobin 30.7 PG (26-34); Mean Corpuscular Volume 92.1 fL (80-100); Monocytes Absolute Auto 600 /uL (0-900); Monocytes Percent Auto 8.8 % (3-14); Neutrophils Absolute Auto 5000 /uL (1500-7000); Neutrophils Percent Auto 71.4 % (50-75); Platelet Count 240 X10^3/uL (150-400); Red Blood Cell Count 4.62 X10^6/uL (4.5-5.9); Red Cell Distribution Width 13.8 % (11.6-14.8)
[2023-02-09 12:00] VITALS: PULSE 68; RESP 20; O2SAT 96
[2023-02-09 12:23] LABS: BUN Creatinine Ratio 16.9 (6-22); Blood Urea Nitrogen 21 mg/dL (9-20); Carbon Dioxide 25 mmol/L (22-32); Chloride 107 mmol/L (98-107); Estimated Glomerular Filt Rate > 60 mL/min (>60); Glucose 86 mg/dL (80-110); HEMOLYSIS < 15 (0-50); Potassium 4.8 mmol/L (3.4-5.1); Sodium 136 mmol/L (137-145)
[2023-02-09 12:30] VITALS: BP 143/65; PULSE 71; RESP 15; O2SAT 95
== END 2023-02-09 12:46 | disposition home or self-care (01) ==
PROVIDERS: Emergency Provider Emergency Medicine; PCP Pediatrics
DX: I49.8 Other specified cardiac arrhythmias (principal); R00.2 Palpitations; I48.91 Unspecified atrial fibrillation; I10 Essential (primary) hypertension; Z79.899 Other long term (current) drug therapy
CPT/HCPCS: 36415; 80048; 85025; 93005; 99283; 99284

== ENCOUNTER → 2023-04-12 12:06 | Outpatient (CLI) | payer MEDICARE, OTHER, SELFPAY ==
[2023-04-12 12:44] LABS: Add Manual Diff / Slide Review NO; Basophils Absolute Auto 100 /uL (0-100); Basophils Percent Auto 1.2 % (0-2); Eosinophils Absolute Auto 100 /uL (0-450); Eosinophils Percent Auto 2.1 % (2-4); Hematocrit 41.5 % (41-53); Hemoglobin 13.9 g/dL (13.5-17.5); Lymphocytes Absolute Auto 1500 /uL (1100-4500); Lymphocytes Percent Auto 30.9 % (25-40); Mean Corpuscular HGB Conc 33.5 % (30-36); Mean Corpuscular Hemoglobin 30.7 PG (26-34); Mean Corpuscular Volume 91.8 fL (80-100); Monocytes Absolute Auto 500 /uL (0-900); Monocytes Percent Auto 10.9 % (3-14); Neutrophils Absolute Auto 2700 /uL (1500-7000); Neutrophils Percent Auto 54.9 % (50-75); Platelet Count 235 X10^3/uL (150-400); Red Blood Cell Count 4.52 X10^6/uL (4.5-5.9); Red Cell Distribution Width 13.7 % (11.6-14.8)
[2023-04-12 13:26] LABS: Free T4, Direct Thyroxine 0.85 ng/dL (0.78-2.19)
[2023-04-12 13:40] LABS: Thyroid Stimulating Hormone 1.47 uIU/mL (0.47-4.68)
== END ==
PROVIDERS: PCP Pediatrics; Referring Provider Nurse Practitioner; Visit Provider Nurse Practitioner
DX: I48.0 Paroxysmal atrial fibrillation (principal)
CPT/HCPCS: 36415; 84439; 84443; 85025

== ENCOUNTER → 2023-10-15 08:16 | Outpatient (CLI) | payer MEDICARE, OTHER, SELFPAY ==
[2023-10-15 09:19] LABS: Alanine Aminotransferase 25 IU/L (<50); Albumin 3.9 g/dL (3.5-5.0); Albumin Globulin Ratio 1.9 (1.0-2.8); Alkaline Phosphatase 82 U/L (38-126); Aspartate Aminotransferase 30 IU/L (17-59); BUN Creatinine Ratio 15.3 (6-22); Bilirubin Total 0.8 mg/dL (0.2-1.3); Blood Urea Nitrogen 18 mg/dL (9-20); Calcium 8.8 mg/dL (8.4-10.2); Carbon Dioxide 24 mmol/L (22-32); Chloride 109 mmol/L (98-107); Cholesterol 151 mg/dL (140-199); Estimated Glomerular Filt Rate > 60 mL/min (>60); Globulin 2.1 g/dL (1.7-4.1); Glucose 107 mg/dL (80-110); HDL Cholesterol 55 mg/dL (40-60); HEMOLYSIS < 15 (0-50); LDL Cholesterol Calculated 79 mg/dL (<100); Potassium 4.3 mmol/L (3.4-5.1); Sodium 139 mmol/L (137-145); Triglycerides 83 mg/dL (35-150)
== END ==
PROVIDERS: Referring Provider Nurse Practitioner; Visit Provider Nurse Practitioner
DX: E78.5 Hyperlipidemia, unspecified (principal); I48.0 Paroxysmal atrial fibrillation
CPT/HCPCS: 36415; 80053; 80061

== ENCOUNTER 2024-01-13 07:21 | Emergency (ER) | payer MEDICARE, OTHER, SELFPAY ==
[2024-01-13 07:24] VITALS: BP 117/65; PULSE 80; RESP 16; TEMP 36.6; O2SAT 98; BMI 25.1
--- NOTE | 2024-01-13 07:29 | DI.RAD.S_ITS ---
PROCEDURE: XR CHEST 1V INDICATIONS: syncope TECHNIQUE: One view of the chest was acquired. COMPARISON: None. FINDINGS: Surgical changes and devices: None. Lungs and pleura: Lungs are clear. No pleural effusions or pneumothorax. Mediastinum: Mediastinal contours appear normal. Heart size is normal. Bones and chest wall: No suspicious bony lesions. Overlying soft tissues appear unremarkable. IMPRESSION: No acute cardiopulmonary abnormality is seen. Dictated by: Paul Crain M.D. on 01/13/2024 at 7:59 Approved by: Paul Crain M.D. on 01/13/2024 at 7:59
--- NOTE | 2024-01-13 07:29 | DI.CT.S_ITS ---
PROCEDURE: CT HEAD/BRAIN WO CON INDICATIONS: syncope, hit head TECHNIQUE: Noncontrast 4.5 mm thick angled axial sections acquired from the foramen magnum to the vertex, with coronal and sagittal reformats. For radiation dose reduction, the following was used: automated exposure control, adjustment of mA and/or kV according to patient size. COMPARISON: None. FINDINGS: Image quality: Diagnostic. CSF spaces: Basal cisterns are patent. No extra-axial fluid collections. The ventricles are symmetric in size and shape. Brain: No intracranial bleeds or masses. There is cerebral volume loss for age, with resultant ventricular and sulcal prominence. There are periventricular and deep white matter chronic small vessel ischemic changes. There is intracranial internal carotid artery atherosclerosis. Skull and face: Calvarium and visualized facial bones appear intact, without suspicious lesions. Sinuses: Visualized sinuses and mastoids are clear. IMPRESSION: No acute intracranial pathology. Dictated by: Lennox Simon M.D. on 01/13/2024 at 8:02 Approved by: Lennox Simon M.D. on 01/13/2024 at 8:06
--- NOTE | 2024-01-13 07:30 | ED_ITS ---
HPI - Syncope General Chief Complaint: Syncope Stated Complaint: Syncopal episode Time Seen by Provider: 01/13/24 07:21 Source: patient, EMS, RN notes reviewed and old records reviewed Mode of arrival: EMS Limitations: no limitations History of Present Illness HPI narrative: 73-year-old male history of atrial fibrillation, hypertension dyslipidemia who states that he felt that he was irregular about 5:00 a.m. this morning took 2 tablets of flecainide, was up at about 7:00 a.m. standing in the bathroom when he felt lightheaded and a little nauseated had what sounds like a syncopal episode. Patient woke up the ground with his standing over him saying she was calling EMS. Patient did hit his head he has a small abrasion he is unsure of his last tetanus status. Denies any active headache or neck pain, states he feels improved currently. Did feel little bit lightheaded this morning on and off. Denies any chest pain or shortness of breath. No abdominal or back pain. No longer has any nausea or vomiting. No loss of bowel or bladder control. No diarrhea or constipation or urinary symptoms recently. No swelling in extremities recently. Denies any injuries in his body. Patient states he takes flecainide PRN, normally takes diltiazem twice daily, losartan in the morning and atorvastatin daily. Patient has not had his diltiazem or losartan yet. Patient states no prior cardiac interventions. Unsure of his tetanus status, no tobacco, has a scotch daily, did have an extra beer yesterday while watching football. Denies any recreational drugs. 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 Dr. Bradford is his primary care physician. EMS needs glucose was in the 100 range point of care check and initial pressure was 101 systolic while lying flat and was 80 systolic while upright in the field. 1 L normal saline was started in the field and continued in the department. Related Data Home Medications Medication Instructions Recorded Confirmed atorvastatin 20 mg tablet 20 mg PO BEDTIME 01/06/19 05/31/22 diltiazem HCl 120 mg 240 mg PO QDAY 01/06/19 05/31/22 capsule,extended release 24 hr (Cartia XT) losartan 50 mg tablet (Cozaar) 25 mg PO QDAY 01/06/19 05/31/22 flecainide 100 mg tablet 100 mg PO BID PRN Atrial 02/11/19 05/31/22 Fibrillation Previous Rx's Medication Instructions Recorded alfuzosin 10 mg tablet,extended See Rx Instructions .Route 04/01/23 release 24 hr .COMPLEX #90 tabs Allergies Allergy/AdvReac Type Severity Reaction Status Date / Time No Known Drug Allergies Allergy Verified 01/13/24 07:30 Review of Systems Review of Systems ROS Unobtainable: All systems reviewed & are unremarkable except as noted in HPI and below Patient History Medical History History of elevated PSA BPH w urinary obs/LUTS Enlarged prostate HLD (hyperlipidemia) Chronic sinusitis CKD (chronic kidney disease) stage 2, GFR 60-89 ml/min Umbilical hernia Vision disorder Degenerative joint disease (DJD) of lumbar spine Chronic back pain Mumps Chicken pox Tinnitus Recurrent sinusitis History of recurrent ear infection Hearing loss Hemorrhoid Hypertension Atrial fibrillation Skin cancer Surgical History Hx of sinus surgery Anesthesia History of nasal septoplasty (~2005) History of inguinal hernia repair (~2002) History of inguinal hernia repair (~1970) Family History Father History of heart disease Mental health problem Mother Cancer Social History household members: spouse Smoking Status: Never smoker Smoking Status: Never smoker alcohol intake frequency: 0-2 drinks per day Alcohol type: hard liquor Substance Use Type: does not use Exam Narrative Exam Narrative: GEN: well nourished, well appearing male, alert and oriented x 3, patient appears to be in mild distress. HEENT: Atraumatic except for abrasion left parietal area, pupils are equal round reactive to light, extraocular movements are intact, nares are clear, TMs are clear with no fluid, there is no conjunctival pallor. Throat is clear without any exudates, erythema, tonsillar enlargement or uvular deviation HEART: Regular rate and rhythm without murmur, clicks, rubs. pulses are equal in upper and lower extremities LUNGS:Lungs clear to auscultation, no wheezes, rales, crackles, chest moves symmetrically ABD:bowel sounds normal, soft, non-tender, no guarding, rebound, rigidity, no masses noted, no hepatosplenomegaly :No CVA tenderness MSCL: Non-tender, no muscle atrophy, muscles strength 5/5 upper and lower extremities, full range of motion, normal gait NEURO:CN 2-12 intact, sensation normal. Initial Vital Signs Initial Vital Signs: Vital Signs Temperature 97.8 F 01/13/24 07:24 Pulse Rate 80 01/13/24 07:24 Respiratory Rate 16 01/13/24 07:24 Blood Pressure 117/65 01/13/24 07:24 Pulse Oximetry 98 01/13/24 07:24 Oxygen Delivery Method Room Air 01/13/24 07:24 Course Orders Ordered: Discontinued Medications Diphtheria/Tetanus/Acell Pertussis (Tet,Diph,Pertuss(Acell),Vac/Pf 0.5 Ml Syringe) 0.5 ml IM .ONCE ONE Stop: 01/13/24 07:30 Last Admin: 01/13/24 08:37 Dose: 0.5 ml Documented By: SONYA Vital Signs Vital signs: Vital Signs - 8 hr 01/13/24 07:24 01/13/24 08:30 Temperature 97.8 F Pulse Rate 80 93 H Respiratory Rate 16 20 Blood Pressure 117/65 Pulse Oximetry 98 95 Oxygen Delivery Method Room Air MDM - Syncope Lab Data 01/13/24 07:25 01/13/24 07:25 Labs: Lab Results 01/13/24 Range/Units 07:25 WBC 9.6 (4.5-11.0) X10^3/uL RBC 4.63 (4.5-5.9) X10^6/uL Hgb 14.5 (13.5-17.5) g/dL Hct 43.0 (41-53) % MCV 92.8 (80-100) fL MCH 31.3 (26-34) PG MCHC 33.7 (30-36) % RDW 13.9 (11.6-14.8) % Plt Count 260 (150-400) X10^3/uL Neut % (Auto) 43.8 L (50-75) % Lymph % (Auto) 45.5 H (25-40) % [place] % (Auto) 8.4 (3-14) % Eos % (Auto) 1.7 L (2-4) % Baso % (Auto) 0.6 (0-2) % Neut # (Auto) 4200 (5317-7496) /uL Lymph # (Auto) 4400 (8704-2524) /uL [place] # (Auto) 800 (0-900) /uL Eos # (Auto) 200 (0-450) /uL Baso # (Auto) 100 (0-100) /uL Sodium 137 (137-145) mmol/L Potassium 4.3 (3.4-5.1) mmol/L Chloride 108 H (98-107) mmol/L Carbon Dioxide 21 L (22-32) mmol/L BUN 23 H (9-20) mg/dL Creatinine 1.70 H (0.66-1.25) mg/dL Estimated GFR 42 L (>60) mL/min BUN/Creatinine Ratio 13.5 (6-22) Glucose 132 H (80-110) mg/dL Calcium 9.2 (8.4-10.2) mg/dL Total Bilirubin 0.4 (0.2-1.3) mg/dL AST 25 (17-59) IU/L ALT 19 (<50) IU/L Alkaline Phosphatase 75 (38-126) U/L Total Creatine Kinase 77 (55-170) U/L Troponin I 0.032 (0.01-0.034) ng/mL NT-Pro-B Natriuret Pep 366 H (<125) pg/mL Total Protein 6.3 (6.3-8.2) g/dL Albumin 3.9 (3.5-5.0) g/dL Globulin 2.4 (1.7-4.1) g/dL Albumin/Globulin Ratio 1.6 (1.0-2.8) Lipase 60 (23-300) U/L ECG Data Attestation: I personally reviewed and interpreted this ECG as follows: Prior ECG tracings: available for review Interpretation: Sinus rhythm rate of 78 IA 186 QRS of 98 QTC 478, no acute ST elevation or depression. EKG from 09/06/2023 appears similar. MDM Narrative Medical decision making narrative: 73-year-old male history of atrial fibrillation who was not on any anticoagulation presents with complaint of syncope. Patient does note that he was irregular and took 2 tablets of flecainide which is a PRN medication for him at about 5:00 a.m. this morning and had lightheadedness and a syncopal episode about 7:00 a.m. while standing upright in the bathroom. Reviewed chart notes last tetanus was 2010. Labs normal white count hemoglobin of 14.5 platelets of 2 60s predominance of lymphocytes. Chemistries shows sodium 137 potassium 4.3 chloride of 108 CO2 is 21 with BUN 23 creatinine of 1.7 last for comparison was October of 2023 with a glucose of 132, troponin 0.032 BNP of 366. EKG sinus rhythm. Head CT shows no acute change Chest x-ray shows no acute change Patient's labs show an elevation in creatinine compared to October when creatinine was 1.18 patient appears to range around that area to 1.2, there maybe a component of dehydration with today's episode. Patient does note he was in AFib earlier today and also took 2 tablets of flecainide which may have caused some hypotension as well. Patient received 1 L normal saline, tetanus was updated. Patient had ambulation trial which he tolerated well. Patient does note that his blood pressure has been a little bit low they stopped his alfuzosin recently, he has been checking it intermittently. Encouraged patient to continue to check his blood pressure regularly and they may adjust his medications. Also reviewed his findings from imaging and labs and need for follow-up. All questions answered. Discharge Plan Departure Patient Disposition: Home Clinical Impression: Syncope Instructions: DI for Syncope in Adults (Fainting) Activity Restrictions/Additional Instructions: Please follow-up for recheck, your creatinine or kidney function was elevated today compared to your priors in October. Please have this rechecked with your physician. Continue to check your blood pressure follow up with your assistant winemaker if it continues to run low. Make sure you are drinking plenty of water. Please return for new or worsening symptoms, recurrent episodes of lightheadedness or passing out, chest pain, shortness of breath, persistent vomiting, new swelling of extremities or other new or concerning changes. Prescriptions: No Action alfuzosin 10 mg tablet extended release 24 hr See Rx Instructions .ROUTE .COMPLEX Qty: 90 3RF Dose Instruction: TAKE ONE TABLET BY MOUTH ONE TIME DAILY AFTER THE SAME MEAL Rx Instructions: TAKE ONE TABLET BY MOUTH ONE TIME DAILY AFTER THE SAME MEAL diltiazem HCl [Cartia XT] 120 mg capsule,extended release 24hr 240 mg PO QDAY losartan [Cozaar] 50 mg tablet 25 mg PO QDAY atorvastatin 20 mg tablet 20 mg PO BEDTIME flecainide 100 MG tablet 100 mg PO BID PRN (Reason: Atrial Fibrillation) Rx Instructions: over a year Stand Alone Forms: Patient Portal/API/Survey
[2024-01-13 07:42] LABS: Add Manual Diff / Slide Review NO; Basophils Absolute Auto 100 /uL (0-100); Basophils Percent Auto 0.6 % (0-2); Eosinophils Absolute Auto 200 /uL (0-450); Eosinophils Percent Auto 1.7 % (2-4); Hemoglobin 14.5 g/dL (13.5-17.5); Lymphocytes Absolute Auto 4400 /uL (1100-4500); Lymphocytes Percent Auto 45.5 % (25-40); Mean Corpuscular HGB Conc 33.7 % (30-36); Mean Corpuscular Hemoglobin 31.3 PG (26-34); Mean Corpuscular Volume 92.8 fL (80-100); Monocytes Absolute Auto 800 /uL (0-900); Monocytes Percent Auto 8.4 % (3-14); Neutrophils Absolute Auto 4200 /uL (1500-7000); Neutrophils Percent Auto 43.8 % (50-75); Platelet Count 260 X10^3/uL (150-400); Red Blood Cell Count 4.63 X10^6/uL (4.5-5.9); Red Cell Distribution Width 13.9 % (11.6-14.8); White Blood Cell Count 9.6 X10^3/uL (4.5-11.0)
[2024-01-13 07:46] LABS: Alanine Aminotransferase 19 IU/L (<50); Albumin 3.9 g/dL (3.5-5.0); Albumin Globulin Ratio 1.6 (1.0-2.8); Alkaline Phosphatase 75 U/L (38-126); Aspartate Aminotransferase 25 IU/L (17-59); BUN Creatinine Ratio 13.5 (6-22); Bilirubin Total 0.4 mg/dL (0.2-1.3); Blood Urea Nitrogen 23 mg/dL (9-20); Calcium 9.2 mg/dL (8.4-10.2); Carbon Dioxide 21 mmol/L (22-32); Chloride 108 mmol/L (98-107); Creatine Kinase 77 U/L (55-170); Estimated Glomerular Filt Rate 42 mL/min (>60); Globulin 2.4 g/dL (1.7-4.1); Glucose 132 mg/dL (80-110); HEMOLYSIS 25 (0-50); Lipase 60 U/L (23-300); Potassium 4.3 mmol/L (3.4-5.1); Sodium 137 mmol/L (137-145); Total Protein 6.3 g/dL (6.3-8.2)
--- NOTE | 2024-01-13 07:56 | EKG_ITS ---
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
[2024-01-13 07:58] LABS: NT-proBNP (BNP-Adult 18+) 366 pg/mL (<125); Troponin I 0.032 ng/mL (0.01-0.034)
[2024-01-13 08:16] VITALS: PULSE 77; RESP 13; O2SAT 97
[2024-01-13 08:30] VITALS: PULSE 93; RESP 20; O2SAT 95
[2024-01-13] MEDS: TET,DIPH,PERTUSS(ACELL),VAC/PF 0.5 ML SYRINGE IM (08:37)
[2024-01-13 08:45] VITALS: BP 116/56; PULSE 83; RESP 20; TEMP 36.9; O2SAT 100
== END 2024-01-13 08:47 | disposition home or self-care (01) ==
PROVIDERS: Emergency Provider Emergency Medicine
DX: R55 Syncope and collapse (principal); R11.0 Nausea; R42 Dizziness and giddiness; Z23 Encounter for immunization; S09.90XA Unspecified injury of head, initial encounter
CPT/HCPCS: 70450; 71045; 80053; 82550; 83690; 83880; 84484; 85025; 90471; 93005; 99283; 99284; 90715

== ENCOUNTER → 2024-01-15 12:47 | Outpatient (CLI) | payer MEDICARE, OTHER, SELFPAY ==
[2024-01-17 11:36] LABS: PSA Free % 14.4 % (.); PSA, Total 7.2 ng/mL (0.0-4.0)
== END ==
PROVIDERS: Referring Provider Urology; Visit Provider Urology
DX: N40.1 Benign prostatic hyperplasia with lower urinary tract symptoms (principal); N13.8 Other obstructive and reflux uropathy; R97.20 Elevated prostate specific antigen [PSA]; Z87.898 Personal history of other specified conditions
CPT/HCPCS: 84153; 84154

== ENCOUNTER → 2024-02-11 09:06 | Outpatient (CLI) | payer MEDICARE, OTHER, SELFPAY ==
--- NOTE | 2024-02-11 09:07 | DI.MRI.S_ITS ---
PROCEDURE: MR PELVIC PROSTATE PROTOCOL INDICATIONS: Elevated and rising PSA TECHNIQUE: Coronal HASTE, axial T1 FSE with fat saturation, 3-plane nonbreath-hold T2 FSE. After the administration of contrast, dynamic axial, delayed axial and coronal VIBE or 2-D FLASH with fat saturation through the pelvis. Diffusion weighted imaging and ADC was performed. COMPARISON: None. FINDINGS: Image quality: Diffusion weighted and dynamic contrast enhanced images are diagnostic. Prostate: Gland size is 3.7 x 4.1 x 5.1 cm; ellipsoid gland volume is 40 mL. PSA density of 0.18, suspicious. There is diffuse T2 hypointense signal throughout the peripheral zone of the mid gland and base, less so within the apex. Additionally, there is homogeneous enhancement of this region, findings are consistent with prostatitis. Within the left lateral peripheral zone of the mid gland, there is a small focus of restricted diffusion, without corresponding T2 lesion (series 23, image 64). Genitourinary system: Bladder wall thickness is normal. Distal ureters are non distended. Bowel and peritoneum: No pathologic free pelvic fluid. Inferior colon and small bowel loops are normal in caliber. Nodes and vessels: No pelvic or inguinal adenopathy by size criteria. Iliac vessels are normal in caliber. Soft tissues: Small left inguinal hernia containing fat. Bones: Marrow demonstrates normal overall signal, without lesions to suggest metastases. IMPRESSION: Prostatitis, as evidenced by diffuse T2 hypointense signal throughout the peripheral zone and early, diffuse enhancement. Small focus of restricted diffusion in the left lateral peripheral zone of the mid gland. No corresponding T2 hypointense lesion is seen, although this region is diffusely hypointense so underlying malignancy is not entirely excluded. Consider short-term follow-up, PMSA PET, or random sampling. No pelvic lymphadenopathy by size criteria. No aggressive osseous abnormality. Dictated by: Lennox Simon M.D. on 02/11/2024 at 12:54 Approved by: Lennox Simon M.D. on 02/11/2024 at 13:04
== END ==
PROVIDERS: PCP Family Medicine; Referring Provider Urology; Visit Provider Urology
DX: K40.90 Unilateral inguinal hernia, without obstruction or gangrene, not specified as recurrent (principal); N41.9 Inflammatory disease of prostate, unspecified; R97.20 Elevated prostate specific antigen [PSA]
CPT/HCPCS: 72197; A9579

== ENCOUNTER → 2024-05-05 08:41 | Outpatient (CLI) | payer MEDICARE, OTHER, SELFPAY ==
[2024-05-06 13:10] LABS: PSA Free % 14.7 % (.); PSA, Total 7.8 ng/mL (0.0-4.0)
== END ==
PROVIDERS: PCP Family Medicine; Referring Provider Urology; Visit Provider Urology
DX: R97.20 Elevated prostate specific antigen [PSA] (principal)
CPT/HCPCS: 36415; 84153; 84154

== ENCOUNTER → 2024-08-26 10:50 | Outpatient (CLI) | payer MEDICARE, OTHER, SELFPAY ==
[2024-08-27 11:30] LABS: PSA Free % 14.5 % (.); PSA, Total 8.6 ng/mL (0.0-4.0)
== END ==
PROVIDERS: Urology; PCP Family Medicine; Referring Provider Urology; Visit Provider Urology
DX: R97.20 Elevated prostate specific antigen [PSA] (principal)
CPT/HCPCS: 36415; 84153; 84154

== ENCOUNTER → 2024-08-31 10:43 | Outpatient (CLI) | payer MEDICARE, OTHER, SELFPAY | PROVIDERS: PCP Family Medicine; Visit Provider Urology | DX: N40.1 Benign prostatic hyperplasia with lower urinary tract symptoms (principal); N13.8 Other obstructive and reflux uropathy | CPT/HCPCS: 87086 ==

== ENCOUNTER → 2025-01-19 08:18 | Outpatient (CLI) | payer MEDICARE, OTHER, SELFPAY ==
[2025-01-19 08:56] LABS: Add Manual Diff / Slide Review NO; Hematocrit 41.0 % (41-53); Hemoglobin 13.8 g/dL (13.5-17.5); Lymphocytes Absolute Auto 1900 /uL (1100-4500); Mean Corpuscular HGB Conc 33.7 % (30-36); Mean Corpuscular Hemoglobin 31.1 PG (26-34); Mean Corpuscular Volume 92.3 fL (80-100); Platelet Count 229 X10^3/uL (150-400)
[2025-01-19 09:06] LABS: Hemoglobin A1C% w Est Avg Glu 5.5 % (4.0-6.0)
[2025-01-19 09:29] LABS: Alanine Aminotransferase 20 IU/L (<50); Albumin 4.1 g/dL (3.5-5.0); Albumin Globulin Ratio 1.8 (1.0-2.8); Alkaline Phosphatase 80 U/L (38-126); Blood Urea Nitrogen 17 mg/dL (9-20); Calcium 8.6 mg/dL (8.4-10.2); Carbon Dioxide 27 mmol/L (22-32); Chloride 105 mmol/L (98-107); Cholesterol 152 mg/dL (140-199); Estimated Glomerular Filt Rate > 60 mL/min (>60); Globulin 2.3 g/dL (1.7-4.1); Glucose 84 mg/dL (70-99); HDL Cholesterol 54 mg/dL (40-60); HEMOLYSIS < 15 (0-50); Potassium 4.4 mmol/L (3.4-5.1); Sodium 139 mmol/L (137-145); Total Protein 6.4 g/dL (6.3-8.2); Triglycerides 92 mg/dL (35-150)
== END ==
PROVIDERS: PCP Family Medicine; Referring Provider Family Medicine; Visit Provider Family Medicine
DX: N41.1 Chronic prostatitis (principal); I12.9 Hypertensive chronic kidney disease with stage 1 through stage 4 chronic kidney disease, or unspecified chronic kidney disease; N18.2 Chronic kidney disease, stage 2 (mild); R97.20 Elevated prostate specific antigen [PSA]; H91.10 Presbycusis, unspecified ear; I48.91 Unspecified atrial fibrillation; R73.09 Other abnormal glucose; E78.5 Hyperlipidemia, unspecified; Z79.899 Other long term (current) drug therapy
CPT/HCPCS: 36415; 80053; 80061; 83036; 85025

== ENCOUNTER → 2025-01-22 09:02 | Outpatient (CLI) | payer MEDICARE, OTHER, SELFPAY ==
--- NOTE | 2025-01-22 09:08 | DI.CT.S_ITS ---
PROCEDURE: CT ABDOMEN PELVIS WO CON INDICATIONS: concern for kidney stone TECHNIQUE: CT of the abdomen and pelvis was obtained without intravenous contrast. Coronal and sagittal reformats were performed. For radiation dose reduction, the following was used: automated exposure control, adjustment of mA and/or kV according to patient size. COMPARISON: None. FINDINGS: Image quality: Diagnostic. Lower Chest: 5 mm solid pulmonary nodule in the left lower lobe (3/1), which does not meet criteria for follow-up. ABDOMEN: Liver: No contour-deforming mass. Gallbladder: No radiopaque gallstones or wall thickening. Biliary ducts: No biliary dilation. Pancreas: No ductal dilation. Spleen: Size is within normal limits. Adrenal Glands: No adrenal nodules. Kidneys and Ureters: No hydronephrosis. No contour-deforming mass. Stomach and Bowel: Normal colonic caliber, without significant wall thickening. Colonic diverticulosis without evidence of acute diverticulitis. Normal appendix. Peritoneum: No abnormal intraperitoneal fluid. No free air. Ventral Wall: No significant hernia. Abdominal Nodes: No retroperitoneal or mesenteric adenopathy by size criteria. Vessels: Aorta and inferior vena cava are normal in size. PELVIS: Pelvic Organs: Prostatomegaly. Bladder: Unremarkable. Pelvic Nodes: No enlarged lymph nodes. Miscellaneous: Small left fat containing inguinal hernia. Bones: No aggressive osseous abnormality. Age-appropriate degenerative changes. IMPRESSION: No evidence of renal stones. No hydronephrosis. No acute abnormality in the abdomen or pelvis on noncontrast examination. Dictated by: Meg Spaulding M.D. on 01/22/2025 at 22:44 Approved by: Meg Spaulding M.D. on 01/22/2025 at 22:48
== END ==
PROVIDERS: PCP Family Medicine; Referring Provider Family Medicine; Visit Provider Family Medicine
DX: M54.50 Low back pain, unspecified (principal); R10.A0 Flank pain, unspecified side; B40.1 Chronic pulmonary blastomycosis; N13.8 Other obstructive and reflux uropathy; N41.1 Chronic prostatitis; N40.1 Benign prostatic hyperplasia with lower urinary tract symptoms; K40.90 Unilateral inguinal hernia, without obstruction or gangrene, not specified as recurrent
CPT/HCPCS: 74176

== ENCOUNTER → 2025-02-22 11:31 | Outpatient (CLI) | payer MEDICARE, OTHER, SELFPAY | PROVIDERS: PCP Family Medicine; Referring Provider Urology; Visit Provider Urology | DX: N40.1 Benign prostatic hyperplasia with lower urinary tract symptoms (principal); N13.8 Other obstructive and reflux uropathy; R97.20 Elevated prostate specific antigen [PSA] | CPT/HCPCS: 36415; 84153; 84154 ==